=== PATIENT | female | born 1950 | race Caucasian/White ===

== ENCOUNTER 2023-07-07 02:44 | Emergency (ER) | payer MEDICARE, BC ==
[~2023-07-07] VITALS: Ht 165.1 cm; Wt 65.0 kg
[~2023-07-07 02:44] MED LIST: CYCL-1 PO
[2023-07-07 03:10] VITALS: BP 196/89; PULSE 68; TEMP 98.1; O2SAT 99
[2023-07-07 04:08] LABS: BILIRUBIN,URINE NEGATIVE (Neg); CLARITY,URINE CLOUDY (Clear); COLOR,URINE YELLOW (Yellow); GLUCOSE, URINE >=1000 mg/dl (Neg); KETONES,URINE 15 mg/dl (Neg); LEUKOCYTE ESTERASE ,URINE NEGATIVE (Neg); NITRITES, URINE NEGATIVE (Neg); OCCULT BLOOD,URINE LARGE (Neg); PH,URINE 5.5 (4.8-8.0); PROTEIN,URINE 30 mg/dl (Neg); UROBILINOGEN,URINE 0.2 E.U/dL (0.2-1.0)
[2023-07-07] MEDS ORDERED: ondansetron/PF 4mg/2ml inj IV ONE (04:25)
[2023-07-07] MEDS ORDERED: morphine 4 MG/ML inj SYRINge IV ONE (04:25)
[2023-07-07 04:28] LABS: UA COLLECTION TYPE CLN CATCH MIDSTREAM
[2023-07-07 04:29] LABS: SQUAMOUS EPITHELIAL CELL,UR FEW /LPF (FEW)
[2023-07-07 04:30] LABS: RBC,URINE TNTC /HPF (0-2)
[2023-07-07 04:31] LABS: BACTERIA,URINE 1+ /HPF (Neg)
[2023-07-07 04:32] LABS: WBC,URINE 0-4 /HPF (0-4)
[2023-07-07 04:49] LABS: BASOPHILS % (AUTO) 0.3 % (0-1); EOSINOPHILS % (AUTO) 0 % (0-6); HEMOGLOBIN 12.3 g/dl (12.0-16.0); LYMPHOCYTES # (AUTO) 1.4 X10'3 (1.1-4.8); LYMPHOCYTES % (AUTO) 12.1 % (21-51); MEAN CORPUSCULAR HEMOGLOBIN 29.9 PG (27.0-31.0); MEAN CORPUSCULAR HGB CONC 33.3 g/dL (33.0-36.5); MEAN CORPUSCULAR VOLUME 89.8 FL (78-98); MEAN PLATELET VOLUME 9.2 FL (7.4-10.4); MONOCYTES # (AUTO) 0.4 X10'3 (0-0.9); MONOCYTES % (AUTO) 3.4 % (2-12); NEUTROPHILS % (AUTO) 84.2 % (42-75); PLATELET COUNT 223 X10'3 (140-440); RED BLOOD COUNT 4.12 X10'6 (4.20-5.60); RED CELL DISTRIBUTION WIDTH 13.7 % (11.5-14.5); WHITE BLOOD COUNT 11.8 X10'3 (4.5-11.0)
[2023-07-07 04:59] LABS: ALANINE AMINOTRANSFERASE 27 U/L (12-78); ALBUMIN 4.1 G/DL (3.4-5.0); ALBUMIN/GLOBULIN RATIO 1.1 (1.1-1.5); ALKALINE PHOSPHATASE 87 IU/L (46-116); ANION GAP 9 (8-16); ASPARTATE AMINO TRANSFERASE 19 U/L (10-37); BILIRUBIN,TOTAL 0.2 MG/DL (0.1-1.0); BLOOD UREA NITROGEN 22 MG/DL (7-18); BUN/CREATININE RATIO 24.4 (10.0-20.0); CHLORIDE 104 MMOL/L (99-107); GLUCOSE 235 MG/DL (70-104); LIPASE 17 U/L (16-77); POTASSIUM 3.8 MMOL/L (3.5-5.1); SODIUM 138 MMOL/L (135-145); TOTAL CARBON DIOXIDE 25.2 MMOL/L (24-32); TOTAL PROTEIN 7.7 G/DL (6.4-8.2); eCRCL 50 ML/MIN; eGFR 61 ML/MIN
[2023-07-07] MEDS ORDERED: ketorolac trometh. 30mg/ml inj. IV ONE (05:20)
[2023-07-07 05:35] VITALS: RESP 16
[2023-07-07] MEDS ORDERED: ONDA4TAB12 PO (05:39)
[2023-07-07] MEDS ORDERED: IBUP-1984 PO (05:39)
[2023-07-07] MEDS ORDERED: FLO0.4C PO (05:39)
[2023-07-07] MEDS ORDERED: HYDR-3965 PO (05:39)
== END 2023-07-07 06:09 | disposition home or self-care (01) ==
LOC: ER 02:44
DX: N23 Unspecified renal colic (principal); R11.2 Nausea with vomiting, unspecified; E78.00 Pure hypercholesterolemia, unspecified; Z79.1 Long term (current) use of non-steroidal anti-inflammatories (NSAID); Z79.899 Other long term (current) drug therapy
CPT/HCPCS: 36415; 74176; 80053; 81001; 83690; 85025; 96374; 96375; 99285; J1885; J2270; J2405